=== PATIENT | male | born 1995 | race Caucasian/White ===

== ENCOUNTER 2023-03-21 18:01 | Observation (INO) ==
--- NOTE | 2023-03-21 18:10 | ED Triage Note ---
Date of Service March 21, 2023 History of Present Illness This patient was briefly evaluated while in triage. An abbreviated physical exam was performed. This patient is a 27-year-old Male who presents to the ED for evaluation of a feeling that he has fluid around his lungs. He had gastric bypass at [facility] on 02/01/23. He had a pleural effusion postoperatively and had a thoracentesis shortly following surgery. He states that over the past few days he has been having pain in the left side and feeling short of breath. Physical Exam VITALS: Vitals are noted on the nurse's note and reviewed by myself. GENERAL: This is a 27-year-old male, in no acute distress, well-developed well- nourished. SKIN: The skin was without rashes. HEART: Regular rate and rhythm without murmurs gallops or rubs. LUNGS: Dullness in the left lung base. NEURO: Patient was alert and oriented to person place and time. Initial orders for labs and / or imaging were placed and patient was placed in the waiting area until a bed is available. Please see further documentation for the full ED course.
--- NOTE | 2023-03-21 18:26 | XRay Report ---
XR chest 1V portable CLINICAL HISTORY: Sob, hx pleural effusion TECHNIQUE: Single frontal radiograph of the chest was obtained. Comparison: Comparison is made to CT abdomen pelvis 02/15/2022 FINDINGS: No lines and tubes are seen. Cardiomegaly is noted. The lungs are clear apart from left-sided atelect asis. Moderate left pleural effusion is seen. IMPRESSION: Moderate left pleural effusion with underlying atelectasis. ACT 112: Negative or not required by law. Electronically signed by: Angel Gaston M.D. 03/21/2023 6:24 PM
[2023-03-21 19:06] LABS: Basophils # (auto) 0.01 K/uL (0-0.2); Basophils % (auto) 0.1 %; Eosinophils # (auto) 0.05 K/uL (0-0.50); Eosinophils % (auto) 0.5 %; Hematocrit (blood only) 41.7 % (42.0-52.0); Hemoglobin 13.6 g/dl (14.0-18.0); Immature Granulocytes # (auto) 0.02 K/uL (0.01-0.20); Immature Granulocytes % (auto) 0.2 %; Mean Corpuscular Hemoglobin 27.2 pg (25.0-34.0); Mean Corpuscular Hgb Conc 32.6 g/dL (32.0-36.0); Mean Corpuscular Volume 83.4 fL (80.0-100.0); Mean Platelet Volume 11.5 fL (9.4-12.4); Monocytes # (auto) 0.65 K/uL (0.11-0.59); Monocytes % (auto) 6.1 %; Neutrophils # (auto) 8.47 K/uL (1.40-6.50); Neutrophils % (auto) 79.1 %; Platelet Count 307 K/uL (130-400); RDW Coefficient of Variation 14.5 % (11.5-14.5); RDW Standard Deviation 44.2 fL (36.4-46.3)
[2023-03-21 19:18] LABS: Alanine Aminotransferase 29 U/L (7-52); Albumin Globulin Ratio 1.2 (0.9-2); Albumin Level 3.8 gm/dl (3.4-5.0); Alkaline Phosphatase 77 U/L (34-104); Anion Gap 9 (3-11); Aspartate Aminotransferase 21 U/L (13-39); Bilirubin,Total 0.6 mg/dl (0.2-1.0); Blood Urea Nitrogen 9 mg/dl (6-23); Calcium 9.2 mg/dl (8.6-10.3); Carbon Dioxide 24 mmol/L (21-32); Chloride 106 mmol/L (98-107); Creatinine Clr Calc Pharmacy 262.8 ml/min; Est GFR (African American) > 150.0 ml/min; Est GFR (Non-African American) 139.7 ml/min; Globulin 3.3 gm/dl (2.5-4.0); Glucose 93 mg/dl (70-99(Fasting)); Potassium 4.5 mmol/L (3.5-5.1); Sodium 139 mmol/L (136-145); Total Protein 7.1 gm/dl (6.0-8.3)
[2023-03-21 19:24] LABS: Troponin I High Sensitivity 2.7 pg/ml (0-20)
--- NOTE | 2023-03-21 20:51 | Emergency Department Note ---
ED Provider Note History of Present Illness Chief Complaint: Illness Stated Complaint: ?PLUERAL EFFUSION,FEELS LIKE HE'S DROWNING, Time Seen by Provider: 03/21/23 20:50 This patient is a 27-year-old Male who presents to the ED for evaluation of a feeling that he has fluid around his lungs. He had gastric bypass at [facility] on 02/01/23 and had several complications following this. He was anemic after surgery and required a blood transfusion. He also had a bout of SVT in the hospital. He had a pleural effusion about 1 week postoperatively and had a thoracentesis. He saw pulmonology and they recommended using an incentive spir ometer which he has done without relief of symptoms. He states that over the past few days he has been having pain in the left side and feeling short of breath. Home Medications Medication Instructions Recorded Confirmed Type omeprazole 20 mg capsule,delayed 20 mg PO DAILYBB 08/04/20 02/15/22 History release trazodone 50 mg tablet 50 mg PO HS PRN Sleep 08/04/20 02/15/22 History apple cider vinegar 600 mg capsule 600 mg PO QAM 02/15/22 02/15/22 History citalopram 40 mg tablet 40 mg PO QAM 02/15/22 02/15/22 History multivitamin with minerals (Men's 1 tab PO QAM 02/15/22 02/15/22 History One Daily tablet) ondansetron 4 mg disintegrating 4 - 8 mg PO Q6H PRN nausea and 02/15/22 Rx tablet vomiting #20 tabs Allergies Allergy/AdvReac Type Severity Reaction Status Date / Time No Known Allergies Allergy Verified 02/15/22 08:56 Past Med/Surg History Medical History Hereditary optic neuropathy Ingrown toenail Kidney stone Tongue tied Family History Grandfather (Paternal) Prostate cancer Father Diabetes Kidney stone Hypertension Mother Diabetes Hypertension Kidney stone Grandmother Diabetes Heart disease Social History Smoking Status: Never smoker Hx Alcohol Use: Yes Preferred Language: Martiniquais marital status: Single Current Living Situation: Family current occupational status: unemployed Feels Safe at Home: Yes Diet: regular Physical Exam Vital Signs Vital Signs - 24 hr 03/21/23 18:04 03/21/23 20:55 03/21/23 20:55 Temperature 36.3 C L Temperature Source Temporal Artery Scan Pulse Rate 97 H 75 Pulse Rate [Apical] 83 Pulse Rate from SpO2 Sensor Pulse Rhythm Regular Pulse Rhythm [Apical] Regular Pulse Strength [Apical] Normal Respiratory Rate 20 22 22 Respiratory Effort / Characteristics Non-Labored Spontaneous Non-Labored Spontaneous Respiratory Depth Normal Normal Respiratory Pattern Regular Regular Blood Pressure 123/85 Blood Pressure [Left Arm] 118/81 Blood Pressure Mean 97 Blood Pressure Mean [Left Arm] 93 Blood Pressure Position [Left Arm] Lying Pulse Oximetry 98 97 97 Oxygen Delivery Method Room Air Room Air Room Air Sepsis Recent Fever Within 48 Hours No Sepsis New/Unexplained Change in Mental Status No Sepsis Action Taken by Nursing No Action Required 03/21/23 20:58 03/21/23 20:57 03/21/23 21:00 Temperature Temperature Source Pulse Rate 82 77 77 Pulse Rate [Apical] Pulse Rate from SpO2 Sensor 84 79 Pulse Rhythm Pulse Rhythm [Apical] Pulse Strength [Apical] Respiratory Rate 18 19 Respiratory Effort / Characteristics Respiratory Depth Respiratory Pattern Blood Pressure Blood Pressure [Left Arm] Blood Pressure Mean Blood Pressure Mean [Left Arm] Blood Pressure Position [Left Arm] Pulse Oximetry 97 97 Oxygen Delivery Method Room Air Room Air Sepsis Recent Fever Within 48 Hours Sepsis New/Unexplained Change in Mental Status Sepsis Action Taken by Nursing 03/21/23 21:00 03/21/23 21:30 03/21/23 22:00 Temperature Temperature Source Pulse Rate 78 82 Pulse Rate [Apical] Pulse Rate from SpO2 Sensor 76 Pulse Rhythm Pulse Rhythm [Apical] Pulse Strength [Apical] Respiratory Rate 22 22 Respiratory Effort / Characteristics Respiratory Depth Respiratory Pattern Blood Pressure 122/71 122/75 139/69 Blood Pressure [Left Arm] Blood Pressure Mean 88 90 92 Blood Pressure Mean [Left Arm] Blood Pressure Position [Left Arm] Pulse Oximetry 94 96 Oxygen Delivery Method Room Air Room Air Sepsis Recent Fever Within 48 Hours Sepsis New/Unexplained Change in Mental Status Sepsis Action Taken by Nursing 03/21/23 22:30 Temperature Temperature Source Pulse Rate 70 Pulse Rate [Apical] Pulse Rate from SpO2 Sensor 71 Pulse Rhythm Pulse Rhythm [Apical] Pulse Strength [Apical] Respiratory Rate 16 Respiratory Effort / Characteristics Respiratory Depth Respiratory Pattern Blood Pressure 150/89 H Blood Pressure [Left Arm] Blood Pressure Mean 109 Blood Pressure Mean [Left Arm] Blood Pressure Position [Left Arm] Pulse Oximetry 96 Oxygen Delivery Method Room Air Sepsis Recent Fever Within 48 Hours Sepsis New/Unexplained Change in Mental Status Sepsis Action Taken by Nursing VITALS: Vitals are noted on the nurse's note and reviewed by myself. GENERAL: This is a 27-year-old male, in no acute distress, well-developed well- nourished. SKIN: The skin was without rashes. MOUTH: Mucous membranes moist. NECK: Supple without nuchal rigidity. HEART: Regular rate and rhythm without murmurs gallops or rubs. LUNGS: Dullness in the left lung base. ABDOMEN: Positive bowel sounds x 4. Soft, nontender to palpation. NEURO: Patient was alert and oriented to person place and time. Course Administered Medications Discontinued Medications Furosemide (Furosemide 40 Mg/4 Ml Vial) 40 mg IV ONE ONE Stop: 03/21/23 22:37 Last Admin: 03/21/23 22:41 Dose: 40 mg Documented By: CARI Piperacillin Sod/Tazobactam Sod (Zosyn) 4.5 gm in 120 mls @ 240 mls/hr IV NOW ONE Stop: 03/22/23 00:58 Last Admin: 03/22/23 00:42 Dose: 240 mls/hr Documented By: CARI Ioversol (Optiray 320 100ml) 100 ml IV ONCE ONE Stop: 03/21/23 23:03 Last Admin: 03/21/23 23:02 Dose: 87 ml Documented By: KERWIN Medical Decision Making Differential Diagnosis Reactive airway disease, pneumonia, pneumothorax, COPD, CHF, infections, cardiac ischemia, pulmonary embolism, musculoskeletal, gastrointestinal, as well as other pathologies. Home Medications was personally reviewed by me Laboratory Data Attestation: I reviewed the patient's lab results. 03/21/23 18:39 03/21/23 18:39 Lab Results 03/21/23 03/21/23 Range/Units 18:39 18:39 WBC 10.70 (4.8-10.8) K/ul RBC 5.00 (4.70-6.10) M/uL Hgb 13.6 L (14.0-18.0) g/dl Hct 41.7 L (42.0-52.0) % MCV 83.4 (80.0-100.0) fL MCH 27.2 (25.0-34.0) pg MCHC 32.6 (32.0-36.0) g/dL RDW Std Deviation 44.2 (36.4-46.3) fL RDW Coeff of Halley 14.5 (11.5-14.5) % Plt Count 307 (130-400) K/uL MPV 11.5 (9.4-12.4) fL Immature Gran % (Auto) 0.2 % Neut % (Auto) 79.1 % Lymph % (Auto) 14.0 % [place] % (Auto) 6.1 % Eos % (Auto) 0.5 % Baso % (Auto) 0.1 % Neut # (Auto) 8.47 H (1.40-6.50) K/uL Lymph # (Auto) 1.50 (1.2-3.4) K/uL [place] # (Auto) 0.65 H (0.11-0.59) K/uL Eos # (Auto) 0.05 (0-0.50) K/uL Baso # (Auto) 0.01 (0-0.2) K/uL Immature Gran # (Auto) 0.02 (0.01-0.20) K/uL Sodium 139 (136-145) mmol/L Potassium 4.5 (3.5-5.1) mmol/L Chloride 106 (98-107) mmol/L Carbon Dioxide 24 (21-32) mmol/L Anion Gap 9 (3-11) BUN 9 (6-23) mg/dl Creatinine 0.60 (0.6-1.4) mg/dl Est Cr Clr Drug Dosing 262.8 ml/min Est GFR ( Amer) > 150.0 ml/min Est GFR (Non-Af Amer) 139.7 ml/min BUN/Creatinine Ratio 15.0 (10-20) Glucose 93 (70-99(Fasting)) mg/dl Calcium 9.2 (8.6-10.3) mg/dl Total Bilirubin 0.6 (0.2-1.0) mg/dl AST 21 (13-39) U/L ALT 29 (7-52) U/L Alkaline Phosphatase 77 (34-104) U/L Troponin I High Sens 2.7 (0-20) pg/ml Total Protein 7.1 (6.0-8.3) gm/dl Albumin 3.8 (3.4-5.0) gm/dl Globulin 3.3 (2.5-4.0) gm/dl Albumin/Globulin Ratio 1.2 (0.9-2) Imaging Data Attestation: I personally reviewed and interpreted this imaging study as follows: Radiologist's Impression: Chest X-Ray 03/21/23 18:10 XR chest 1V portable CLINICAL HISTORY: Sob, hx pleural effusion TECHNIQUE: Single frontal radiograph of the chest was obtained. Comparison: Comparison is made to CT abdomen pelvis 02/15/2022 FINDINGS: No lines and tubes are seen. Cardiomegaly is noted. The lungs are clear apart from left-sided atelectasis. Moderate left pleural effusion is seen. IMPRESSION: Moderate left pleural effusion with underlying atelectasis. ACT 112: Negative or not required by law. Electronically signed by: Angel Gaston M.D. 03/21/2023 6:24 PM Abdomen/Pelvis CT 03/21/23 22:36 Exam(s): CT ABDOMEN + PELVIS With Contrast IV Amt: 87 ml optiray 320 EXAM: CT Abdomen and Pelvis With Intravenous Contrast CLINICAL HISTORY: Reason for exam: recent gastric bypass, pleural effusion. TECHNIQUE: Axial computed tomography images of the abdomen and pelvis with intravenous contrast. Automated exposure control was utilized for the study. A dose lowering technique was utilized adhering to the principles of ALARA. CONTRAST: Patient received 87 ml optiray 320 of IV contrast COMPARISON: Comparison made to prior CT scan of the abdomen pelvis from February 15, 2022. FINDINGS: Lung bases: Left lower lobe consolidation with large pleural effusion. ABDOMEN: Liver: Hepatic steatosis. No mass. Gallbladder and bile ducts: Unremarkable. No calcified stones. No ductal dilation. Pancreas: Unremarkable. No mass. No ductal dilation. Spleen: Unremarkable. No splenomegaly. Adrenals: Unremarkable. No mass. Kidneys and ureters: Unremarkable. No solid mass. No hydronephrosis. Stomach and bowel: Status post gastric bypass with expected postsurgical changes. No obstruction. No mucosal thickening. PELVIS: Appendix: No findings to suggest acute appendicitis. Bladder: Unremarkable. No mass. Reproductive: Unremarkable as visualized. ABDOMEN and PELVIS: Intraperitoneal space: Unremarkable. No free air. No significant fluid collection. Bones/joints: No acute fracture. No dislocation. Soft tissues: There is a 7.5 mm fat-containing umbilical hernia. Vasculature: Unremarkable. No abdominal aortic aneurysm. Lymph nodes: Unremarkable. No enlarged lymph nodes. IMPRESSION: Left lower lobe consolidation with large pleural effusion. Hepatic steatosis. Status post gastric bypass with expected postsurgical changes. Electronically signed by: Breanne Silveira MD 03/21/23 23:[address] 03/21/23 22:36 Exam(s): CT CHEST With Contrast IV Amt: 87 ml optiray 320 EXAM: CT Chest With Intravenous Contrast CLINICAL HISTORY: Reason for exam: chest pain, pleural effusion. TECHNIQUE: Axial computed tomography images of the chest with intravenous contrast. Automated exposure control was utilized for the study. A dose lowering technique was utilized adhering to the principles of ALARA. CONTRAST: Patient received 87 ml optiray 320 of IV contrast COMPARISON: No relevant prior studies available. FINDINGS: Lungs: Left lower lobe and left upper lobe consolidation. Pleural space: Large left pleural effusion. Heart: Unremarkable. No cardiomegaly. No significant pericardial effusion. No significant coronary artery calcifications. Bones/joints: Unremarkable. No acute fracture. No dislocation. Soft tissues: Hepatic steatosis. Status post gastric bypass surgery. Vasculature: Unremarkable. No thoracic aortic aneurysm. Lymph nodes: Prominent mediastinal and hilar lymph nodes. IMPRESSION: Consolidation in the left upper and left lower lobe with large pleural effusion. Electronically signed by: Breanne Silveira MD 03/21/23 23:53 PM MDM Narrative Continuous property assessment monitor: Order was placed for continuous property assessment monitor. Patient was placed on the property assessment monitor. Patient was noted to be in normal sinus rhythm at an initial rate of 70 bpm. The patient is a 27-year-old male who presents today complaining of shortness of breath and pain in the left side of the chest. Labs are unremarkable. Chest x- ray shows a pleural effusion. CT of the chest and abdomen/pelvis were performed and redemonstrated a pleural effusion and pulmonary consolidation. Patient was covered on Zosyn and decision was made to admit him for further care and pulmonary consultation. Case was discussed with the [facility] hospitalist service who agreed to evaluate the patient for further care. Impression Pleural effusion, Pneumonia Discharge Plan Visit Data Chief Complaint: Illness Stated Complaint: ?PLUERAL EFFUSION,FEELS LIKE HE'S DROWNING, ED Provider: Aubree Stephen ED Midlevel Provider: Ro Parr Discharge Problem: Pleural effusion, Pneumonia Forms Stand Alone Forms: [facility] Prescriptions Prescriptions: No Action trazodone 50 mg tablet 50 mg PO HS PRN (Reason: Sleep) omeprazole 20 mg capsule,delayed release(DR/EC) 20 mg PO DAILYBB citalopram 40 mg tablet 40 mg PO QAM apple cider vinegar 600 mg Capsule 600 mg PO QAM Men's One Daily Tablet 1 tab PO QAM ondansetron 4 mg tablet,disintegrating 4 - 8 mg PO Q6H PRN (Reason: nausea and vomiting) Qty: 20 0RF Referrals Referrals: Tao Manzo MD [Primary Care Provider] - Pneumonia Qualifiers: Pneumonia type: due to unspecified organism Laterality: left Lung location: unspecified part of lung Qualified Code(s): J18.9 - Pneumonia, unspecified organism
[2023-03-21] MEDS ORDERED: FUROSEMIDE 40 MG/4 ML VIAL IV ONE (22:36)
[2023-03-21] MEDS ORDERED: OPTIRAY 320 100ml IV ONE (23:02)
--- NOTE | 2023-03-21 23:51 | CT Scan Report ---
Exam(s): CT ABDOMEN + PELVIS With Contrast IV Amt: 87 ml optiray 320 EXAM: CT Abdomen and Pelvis With Intravenous Contrast CLINICAL HISTORY: Reason for exam: recent gastric bypass, pleural effusion. TECHNIQUE: Axial computed tomography images of the abdomen and pelvis with intravenous contrast. Automated exposure control was utilized for the study. A dose lowering technique was utilized adhering to the principles of ALARA. CONTRAST: Patient received 87 ml optiray 320 of IV contrast COMPARISON: Comparison made to prior CT scan of the abdomen pelvis from February 15, 2022. FINDINGS: Lung bases: Left lower lobe consolidation with large pleural effusion. ABDOMEN: Liver: Hepatic steatosis. No mass. Gallbladder and bile ducts: Unremarkable. No calcified stones. No ductal dilation. Pancreas: Unremarkable. No mass. No ductal dilation. Spleen: Unremarkable. No splenomegaly. Adrenals: Unremarkable. No mass. Kidneys and ureters: Unremarkable. No solid mass. No hydronephrosis. Stomach and bowel: Status post gastric bypass with expected postsurgical changes. No obstruction. No mucosal thickening. PELVIS: Appendix: No findings to suggest acute appendicitis. Bladder: Unremarkable. No mass. Reproductive: Unremarkable as visualized. ABDOMEN and PELVIS: Intraperitoneal space: Unremarkable. No free air. No significant fluid collection. Bones/joints: No acute fracture. No dislocation. Soft tissues: There is a 7.5 mm fat-containing umbilical hernia. Vasculature: Unremarkable. No abdominal aortic aneurysm. Lymph nodes: Unremarkable. No enlarged lymph nodes. IMPRESSION: Left lower lobe consolidation with large pleural effusion. Hepatic steatosis. Status post gastric bypass with expected postsurgical changes. Electronically signed by: Breanne Silveira MD 03/21/23 23:50 PM
--- NOTE | 2023-03-21 23:53 | CT Scan Report ---
Exam(s): CT CHEST With Contrast IV Amt: 87 ml optiray 320 EXAM: CT Chest With Intravenous Contrast CLINICAL HISTORY: Reason for exam: chest pain, pleural effusion. TECHNIQUE: Axial computed tomography images of the chest with intravenous contrast. Automated exposure control was utilized for the study. A dose lowering technique was utilized adhering to the principles of ALARA. CONTRAST: Patient received 87 ml optiray 320 of IV contrast COMPARISON: No relevant prior studies available. FINDINGS: Lungs: Left lower lobe and left upper lobe consolidation. Pleural space: Large left pleural effusion. Heart: Unremarkable. No cardiomegaly. No significant pericardial effusion. No significant coronary artery calcifications. Bones/joints: Unremarkable. No acute fracture. No dislocation. Soft tissues: Hepatic steatosis. Status post gastric bypass surgery. Vasculature: Unremarkable. No thoracic aortic aneurysm. Lymph nodes: Prominent mediastinal and hilar lymph nodes. IMPRESSION: Consolidation in the left upper and left lower lobe with large pleural effusion. Electronically signed by: Breanne Silveira MD 03/21/23 23:53 PM
[2023-03-22] MEDS ORDERED: PIPERACILLIN/TAZOBACTAM 4.5 GM/120 ML BAG IV ONE (00:29)
--- NOTE | 2023-03-22 03:46 | History & Physical Report ---
Date of Service March 22, 2023 Assessment & Plan (1) Pleural effusion: (2) Pneumonia: (3) Gastric bypass status for obesity: (4) History of GI bleed: Plan Pneumonia involving left upper and left lower lobes/parapneumonic effusion- MRSA swab Zosyn 4.5 g IV every 8 hours Nasal cannula oxygen, titrate to pulse ox 92-94% Consult pulmonology GERD/GI bleed post gastric bypass- Change omeprazole 20 mg p.o. daily to pantoprazole 40 mg IV daily for now Full liquid diet as tolerated Consult nutrition Postop anemia post gastric bypass- Patient reportedly required 4 units PRBCs due to bleeding the day after surgery. Hemoglobin 13.6 on admission, will follow serially SVT- Patient reportedly had episode of SVT after acute bleeding We will place on monitored bed Normal electrolytes at this time Avoid HFA's and nebulizers for now History of Present Illness Chief Complaint: The patient presents to the emergency department with complaint of a recurrence of fluid building up on his lungs as initially occurred after gastric bypass at [facility] on 02/01/2023 Primary Care Provider: Tao Manzo MD The patient is a 27-year-old male with a past medical history including anxiety, depression, GERD, insomnia and morbid obesity. He is status post gastric bypass at [facility] on 02/01/2023. He reports today after surgery he had a bleed into his abdomen, requiring 4 units PRBCs. He also had fluid in his right lung where about 600 cc of fluid was removed with thoracentesis. He reportedly also had a pneumonia treated with vancomycin IV. The patient reports that over the past couple days he has felt like fluids and feeling back up in his lungs again. He has had persistent nausea and vomiting, and unable to hold any foods or liquids down. He reports that even attempting to take chewable multivitamins results and severe nausea and vomiting. Allergies Allergy/AdvReac Type Severity Reaction Status Date / Time No Known Allergies Allergy Verified 02/15/22 08:56 Home Medications Medication Instructions Recorded Confirmed Type omeprazole 20 mg capsule,delayed 20 mg PO DAILYBB 08/04/20 02/15/22 History release trazodone 50 mg tablet 50 mg PO HS PRN Sleep 08/04/20 02/15/22 History apple cider vinegar 600 mg capsule 600 mg PO QAM 02/15/22 02/15/22 History citalopram 40 mg tablet 40 mg PO QAM 02/15/22 02/15/22 History multivitamin with minerals (Men's 1 tab PO QAM 02/15/22 02/15/22 History One Daily tablet) ondansetron 4 mg disintegrating 4 - 8 mg PO Q6H PRN nausea and 02/15/22 Rx tablet vomiting #20 tabs Past Med/Surg History Medical History (Updated 03/22/23 @ 03:52 by Danielito Hernández MD) Hereditary optic neuropathy History of GI bleed Ingrown toenail Kidney stone Tongue tied Surgical History (Updated 03/22/23 @ 03:52 by Danielito Hernández MD) Gastric bypass status for obesity Family History Grandfather (Paternal) Prostate cancer Father Diabetes Kidney stone Hypertension Mother Diabetes Hypertension Kidney stone Grandmother Diabetes Heart disease Social History Smoking Status: Never smoker Hx Alcohol Use: Yes Preferred Language: Estonian marital status: Single Current Living Situation: Family current occupational status: unemployed Feels Safe at Home: Yes Diet: regular Review of Systems Review of Systems: The patient denies chest pain, palpitations, lower extremity swelling, fevers, chills, sweats, blood in urine or stool, dysuria, urinary frequency or urgency, lightheadedness, dizziness, headache, memory loss, loss of consciousness, rash, abnormal bruising or bleeding, imbalance, focal or generalized weakness, numbness or tingling in arms or legs, generalized arthralgias or myalgias, back or neck pain, or night sweats. The review of systems is otherwise negative other than for that already noted above, and at least 10 systems have been reviewed. Physical Exam Physical Exam: The patient is awake, alert and oriented 3, well developed and well nourished, normocephalic and atraumatic, lying in bed and in no acute distress. HEENT--PERRL, EOMI, mucous membranes and oropharynx dry. Neck--supple. No JVD. No bruits. Thyroid normal, trachea midline, no adenopathy. Heart--normal S1 and S2. No murmurs, rubs or gallops. Lungs--coarse breath sounds on left. No respiratory distress, no accessory muscle use. Abdomen--normal bowel sounds and soft. Nontender. Nondistended Extremities--no cyanosis or clubbing. No edema. Dermatologic--normal skin turgor, normal color, no abnormal lymph nodes, no rash. Neurologic--cranial nerves II through XII grossly intact. Rheumatologic--normal range of motion. Psychiatric--normal affect. Results & Data Results & Data Vital Signs (Past 12 Hours) Vital Signs Temp Pulse Pulse Resp BP BP Pulse Ox 03/22/23 02:35 92 H 24 106/65 94 03/22/23 00:53 96 H 03/22/23 01:17 92 H 14 115/69 92 03/22/23 01:00 97 H 18 94 03/22/23 00:30 102 H 18 91 03/22/23 00:01 105 H 19 94 03/21/23 22:30 70 16 150/89 H 96 03/21/23 22:00 82 22 139/69 96 03/21/23 21:30 78 22 122/75 94 03/21/23 21:00 122/71 03/21/23 21:00 77 19 97 03/21/23 20:57 77 18 97 03/21/23 20:58 82 03/21/23 20:55 83 22 118/81 97 03/21/23 20:55 75 22 97 03/21/23 18:04 36.3 C L 97 H 20 123/85 98 O2 Del Method 03/22/23 02:35 Room Air 03/22/23 00:53 03/22/23 01:17 Room Air 03/22/23 01:00 03/22/23 00:30 03/22/23 00:01 03/21/23 22:30 Room Air 03/21/23 22:00 Room Air 03/21/23 21:30 Room Air 03/21/23 21:00 03/21/23 21:00 Room Air 03/21/23 20:57 Room Air 03/21/23 20:58 03/21/23 20:55 Room Air 03/21/23 20:55 Room Air 03/21/23 18:04 Room Air Laboratory Results Laboratory Results WBC 10.70 K/ul (4.8-10.8) 03/21/23 18:39 RBC 5.00 M/uL (4.70-6.10) 03/21/23 18:39 Hgb 13.6 g/dl (14.0-18.0) L 03/21/23 18:39 Hct 41.7 % (42.0-52.0) L 03/21/23 18:39 MCV 83.4 fL (80.0-100.0) 03/21/23 18: MCH 27.2 pg (25.0-34.0) 03/21/23 18: MCHC 32.6 g/dL (32.0-36.0) 03/21/23 18: RDW Std Deviation 44.2 fL (36.4-46.3) 03/21/23 18: RDW Coeff of Halley 14.5 % (11.5-14.5) 03/21/23 18: Plt Count 307 K/uL (130-400) 03/21/23 18: MPV 11.5 fL (9.4-12.4) 03/21/23 18:39 Immature Gran % (Auto) 0.2 % 03/21/23 18:39 Neut % (Auto) 79.1 % 03/21/23 18:39 Lymph % (Auto) 14.0 % 03/21/23 18:39 [place] % (Auto) 6.1 % 03/21/23 18:39 Eos % (Auto) 0.5 % 03/21/23 18:39 Baso % (Auto) 0.1 % 03/21/23 18:39 Neut # (Auto) 8.47 K/uL (1.40-6.50) H 03/21/23 18:39 Lymph # (Auto) 1.50 K/uL (1.2-3.4) 03/21/23 18:39 [place] # (Auto) 0.65 K/uL (0.11-0.59) H 03/21/23 18:39 Eos # (Auto) 0.05 K/uL (0-0.50) 03/21/23 18:39 Baso # (Auto) 0.01 K/uL (0-0.2) 03/21/23 18: Immature Gran # (Auto) 0.02 K/uL (0.01-0.20) 03/21/23 18:39 Sodium 139 mmol/L (136-145) 03/21/23 18:39 Potassium 4.5 mmol/L (3.5-5.1) 03/21/23 18:39 Chloride 106 mmol/L (98-107) 03/21/23 18:39 Carbon Dioxide 24 mmol/L (21-32) 03/21/23 18:39 Anion Gap 9 (3-11) 03/21/23 18:39 BUN 9 mg/dl (6-23) 03/21/23 18:39 Creatinine 0.60 mg/dl (0.6-1.4) 03/21/23 18:39 Est Cr Clr Drug Dosing 262.8 ml/min 03/21/23 18:39 Est GFR ( Amer) > 150.0 ml/min 03/21/23 18:39 Est GFR (Non-Af Amer) 139.7 ml/min 03/21/23 18:39 BUN/Creatinine Ratio 15.0 (10-20) 03/21/23 18:39 Glucose 93 mg/dl (70-99(Fasting)) 03/21/23 18:39 Calcium 9.2 mg/dl (8.6-10.3) 03/21/23 18:39 Total Bilirubin 0.6 mg/dl (0.2-1.0) 03/21/23 18:39 AST 21 U/L (13-39) 03/21/23 18:39 ALT 29 U/L (7-52) 03/21/23 18:39 Alkaline Phosphatase 77 U/L (34-104) 03/21/23 18:39 Troponin I High Sens 2.7 pg/ml (0-20) 03/21/23 18:39 B-Natriuretic Peptide 28 pg/ml (0-100) 03/22/23 00:32 Total Protein 7.1 gm/dl (6.0-8.3) 03/21/23 18:39 Albumin 3.8 gm/dl (3.4-5.0) 03/21/23 18:39 Globulin 3.3 gm/dl (2.5-4.0) 03/21/23 18:39 Albumin/Globulin Ratio 1.2 (0.9-2) 03/21/23 18:39 SARS-CoV-2, RNA, NAAT NEGATIVE (NEGATIVE) 03/22/23 00:45 Impressions Chest X-Ray 03/21/23 18:10 XR chest 1V portable CLINICAL HISTORY: Sob, hx pleural effusion TECHNIQUE: Single frontal radiograph of the chest was obtained. Comparison: Comparison is made to CT abdomen pelvis 02/15/2022 FINDINGS: No lines and tubes are seen. Cardiomegaly is noted. The lungs are clear apart from left-sided atelectasis. Moderate left pleural effusion is seen. IMPRESSION: Moderate left pleural effusion with underlying atelectasis. ACT 112: Negative or not required by law. Electronically signed by: Angel Gaston M.D. 03/21/2023 6:24 PM Abdomen/Pelvis CT 03/21/23 22:36 Exam(s): CT ABDOMEN + PELVIS With Contrast IV Amt: 87 ml optiray 320 EXAM: CT Abdomen and Pelvis With Intravenous Contrast CLINICAL HISTORY: Reason for exam: recent gastric bypass, pleural effusion. TECHNIQUE: Axial computed tomography images of the abdomen and pelvis with intravenous contrast. Automated exposure control was utilized for the study. A dose lowering technique was utilized adhering to the principles of ALARA. CONTRAST: Patient received 87 ml optiray 320 of IV contrast COMPARISON: Comparison made to prior CT scan of the abdomen pelvis from February 15, 2022. FINDINGS: Lung bases: Left lower lobe consolidation with large pleural effusion. ABDOMEN: Liver: Hepatic steatosis. No mass. Gallbladder and bile ducts: Unremarkable. No calcified stones. No ductal dilation. Pancreas: Unremarkable. No mass. No ductal dilation. Spleen: Unremarkable. No splenomegaly. Adrenals: Unremarkable. No mass. Kidneys and ureters: Unremarkable. No solid mass. No hydronephrosis. Stomach and bowel: Status post gastric bypass with expected postsurgical changes. No obstruction. No mucosal thickening. PELVIS: Appendix: No findings to suggest acute appendicitis. Bladder: Unremarkable. No mass. Reproductive: Unremarkable as visualized. ABDOMEN and PELVIS: Intraperitoneal space: Unremarkable. No free air. No significant fluid collection. Bones/joints: No acute fracture. No dislocation. Soft tissues: There is a 7.5 mm fat-containing umbilical hernia. Vasculature: Unremarkable. No abdominal aortic aneurysm. Lymph nodes: Unremarkable. No enlarged lymph nodes. IMPRESSION: Left lower lobe consolidation with large pleural effusion. Hepatic steatosis. Status post gastric bypass with expected postsurgical changes. Electronically signed by: Breanne Silveira MD 03/21/23 23:[address] 03/21/23 22:36 Exam(s): CT CHEST With Contrast IV Amt: 87 ml optiray 320 EXAM: CT Chest With Intravenous Contrast CLINICAL HISTORY: Reason for exam: chest pain, pleural effusion. TECHNIQUE: Axial computed tomography images of the chest with intravenous contrast. Automated exposure control was utilized for the study. A dose lowering technique was utilized adhering to the principles of ALARA. CONTRAST: Patient received 87 ml optiray 320 of IV contrast COMPARISON: No relevant prior studies available. FINDINGS: Lungs: Left lower lobe and left upper lobe consolidation. Pleural space: Large left pleural effusion. Heart: Unremarkable. No cardiomegaly. No significant pericardial effusion. No significant coronary artery calcifications. Bones/joints: Unremarkable. No acute fracture. No dislocation. Soft tissues: Hepatic steatosis. Status post gastric bypass surgery. Vasculature: Unremarkable. No thoracic aortic aneurysm. Lymph nodes: Prominent mediastinal and hilar lymph nodes. IMPRESSION: Consolidation in the left upper and left lower lobe with large pleural effusion. Electronically signed by: Breanne Silveira MD 03/21/23 23:53 PM Code Status & VTE Plan Code Status Full code VTE Prophylaxis Plan VTE Prophylaxis will be ordered: Yes PG Care Time/CCT Total # of Minutes Spent Total Time Spent with Patient: Total time spent is greater than 50% in coordination of care (as documented) at patient's floor/unit and/or counseling patient: Coding Level of Care Code 88198 INT INP/OBS CARE 3/75MIN Diagnoses Pleural effusion J90 Pneumonia J18.9 Laterality: left Lung location: unspecified part of lung Pneumonia type: due to unspecified organism Gastric bypass status for obesity Z98.84 History of GI bleed Z87.19 (2) Pneumonia Laterality: left Lung location: unspecified part of lung Pneumonia type: due to unspecified organism Qualified Code(s): J18.9 - Pneumonia, unspecified organism
[2023-03-22] MEDS ORDERED: ONDANSETRON INJ 2 MG/ML 2 ML VIAL IV PRN (04:11)
[2023-03-22 04:58] LABS: Basophils # (auto) 0.02 K/uL (0-0.2); Basophils % (auto) 0.2 %; Eosinophils # (auto) 0.05 K/uL (0-0.50); Eosinophils % (auto) 0.5 %; Hemoglobin 13.3 g/dl (14.0-18.0); Immature Granulocytes # (auto) 0.03 K/uL (0.01-0.20); Immature Granulocytes % (auto) 0.3 %; Lymphocytes # (auto) 2.02 K/uL (1.2-3.4); Lymphocytes % (auto) 20.8 %; Mean Corpuscular Hgb Conc 32.4 g/dL (32.0-36.0); Mean Corpuscular Volume 83.3 fL (80.0-100.0); Mean Platelet Volume 11.4 fL (9.4-12.4); Monocytes # (auto) 0.71 K/uL (0.11-0.59); Monocytes % (auto) 7.3 %; Neutrophils # (auto) 6.87 K/uL (1.40-6.50); Neutrophils % (auto) 70.9 %; Platelet Count 296 K/uL (130-400); RDW Coefficient of Variation 14.4 % (11.5-14.5); RDW Standard Deviation 43.7 fL (36.4-46.3); Red Blood Count 4.92 M/uL (4.70-6.10)
[2023-03-22 05:14] LABS: Albumin Globulin Ratio 1.1 (0.9-2); Albumin Level 3.7 gm/dl (3.4-5.0); BUN Creatinine Ratio 11.7 (10-20); Bilirubin,Total 0.8 mg/dl (0.2-1.0); Calcium 9.6 mg/dl (8.6-10.3); Creatinine Clr Calc Pharmacy 204.8 ml/min; Est GFR (African American) 146.2 ml/min; Est GFR (Non-African American) 126.1 ml/min; Globulin 3.3 gm/dl (2.5-4.0)
[2023-03-22] MEDS: PIPERACILLIN/TAZOBACTAM 4.5 GM in DEXTROSE 5% 100 ML IV SCH ×3 (05:29→23:22)
--- NOTE | 2023-03-22 09:32 | Pulmonary Consultation ---
Date of Consultation March 22, 2023 Assessment & Plan (1) Pleural effusion: Plan IMPRESSION: 27-year-old male who is 1.5 months postoperative from bariatric surgery who presents with recurrent LEFT-sided pleural effusion with associated cough and pleuritic chest discomfort requiring thoracentesis and pleural fluid characterization. RECOMMENDATIONS: 1. Pleural effusion - Of uncertain etiology at this point. Certainly is likely related to the patient's recent abdominal surgery. As this is reaccumulated and is resulting in discomfort for the patient, would proceed with thoracentesis with fluid characterization. Patient is agreeable. Will plan on thoracentesis later this afternoon. 2. Questionable pneumonia - Unable to clearly identify area of consolidation secondary to significant pleural fluid with possible underlying compressive atelectasis versus consolidation. Would continue with antibiotic coverage in the interim. Especially in a patient who is complaining of significant nausea and vomiting. 3. Consider swallow study evaluation as the patient reports that he has worsening cough when drinking fluids. Uncertain of the specifics of this in a postoperative gastric bypass patient, however would refer to [facility] for swallow evaluation. Thank you for allowing us to participate in the care of this patient. History of Present Illness Reason for Consultation: pleural effusion/ pnuemonia/ thoracocenthesis Requesting Physician: Dr. Calix Attending Physician: Rickie Calix History of Present Illness Patient is a 27-year-old male with significant past medical history of morbid obesity status post bariatric surgery performed in early January at [facility], anxiety disorder, insomnia, penile adhesions, and GERD. The patient was admitted for 14 days postoperatively after bleeding complications and development of a LEFT-sided pleural effusion. Patient reports undergoing thoracentesis with drainage of approximately 600 cc of pleural fluid. He states that this was "tested" and was felt to be unremarkable. Patient was instructed to utilize his incentive spirometer and take pain medications for any pleuritic type pain. He reports that over the last week he has had increasing LEFT-sided pleuritic pain and a cough productive of clear sputum. He admits a new onset of postnasal drip as well. Patient denies hemoptysis. He reports no fevers or chills. He reports no significant dyspnea on exertion. He denies any falls or recent trauma to the affected area. He denies any prior history of lung disease. He is not on inhalers regularly. He has been having substantial amounts of vomiting postoperatively which has been managed by his surgical team. Allergies Allergy/AdvReac Type Severity Reaction Status Date / Time No Known Allergies Allergy Verified 02/15/22 08:56 Home Medications Medication Instructions Recorded Confirmed Type omeprazole 20 mg capsule,delayed 20 mg PO DAILYBB 08/04/20 02/15/22 History release trazodone 50 mg tablet 50 mg PO HS PRN Sleep 08/04/20 02/15/22 History apple cider vinegar 600 mg capsule 600 mg PO QAM 02/15/22 02/15/22 History citalopram 40 mg tablet 40 mg PO QAM 02/15/22 02/15/22 History multivitamin with minerals (Men's 1 tab PO QAM 02/15/22 02/15/22 History One Daily tablet) ondansetron 4 mg disintegrating 4 - 8 mg PO Q6H PRN nausea and 02/15/22 Rx tablet vomiting #20 tabs Patient History Medical History (Updated 03/22/23 @ 03:52 by Danielito Hernández MD) Hereditary optic neuropathy History of GI bleed Ingrown toenail Kidney stone Tongue tied Surgical History (Updated 03/22/23 @ 03:52 by Danielito Hernández MD) Gastric bypass status for obesity Family History Grandfather (Paternal) Prostate cancer Father Diabetes Kidney stone Hypertension Mother Diabetes Hypertension Kidney stone Grandmother Diabetes Heart disease Social History Smoking Status: Never smoker Hx Alcohol Use: No Hx Substance Use: No Preferred Language: Turkmen Beliefs That Will Affect Care: None marital status: Single Current Living Situation: Spouse current occupational status: unemployed Feels Safe at Home: Yes Diet: regular Review of Systems Review of Systems: A complete 10 point review of systems was reviewed with the patient with pertinent positives and negatives as per history of present illness. All else were negative. Physical Exam Physical Exam: VITAL SIGNS - Vital signs and nursing notes were reviewed. GENERAL - 27-year-old male appearing his stated age who is in no acute distress. Communicates well with provider and answers questions appropriately. SKIN - Without rashes or lesions. Abdominal incision sites clean, dry, and intact. NOSE - Midline and without cyanosis. No epistaxis or purulent drainage noted. MOUTH/OROPHARYNX - Without perioral cyanosis. NECK - Neck with FROM. LUNGS - Chest wall evaluation demonstrates normal chest wall A:P diameter. Auscultation reveals diminished breath sounds at the LEFT lung base. No wheezes, rales, or rhonchi appreciated. CARDIAC - RRR with S1/S2. No murmur, rubs, or gallops appreciated. ABDOMEN - Abdominal inspection demonstrates an obese abdomen. Postoperative incision sites clean, dry, and intact. BS normoactive all four quadrants. No tenderness, palpable masses, or ascites noted. EXTREMITIES - No pretibial edema present. +3/5 radial palpated throughout. PSYCH - A&Ox3 and cooperates fully with examiner. Pt is very pleasant and interacts well with examiner. Results & Data Results & Data Vital Signs (Past 12 Hours) Vital Signs Temp Pulse Pulse Pulse Resp BP BP 03/22/23 07:45 03/22/23 07:46 36.6 C 71 20 107/70 03/22/23 07:00 73 03/22/23 06:10 36.6 C 88 18 123/80 03/22/23 05:33 36.9 C 75 18 130/76 03/22/23 04:00 79 14 03/22/23 02:35 92 H 24 106/65 03/22/23 00:53 96 H 03/22/23 01:17 92 H 14 115/69 03/22/23 01:00 97 H 18 03/22/23 00:30 102 H 18 03/22/23 00:01 105 H 19 03/21/23 22:30 70 16 150/89 H 03/21/23 22:00 82 22 139/69 03/21/23 21:30 78 22 122/75 Pulse Ox O2 Del Method 03/22/23 07:45 Room Air 03/22/23 07:46 94 Room Air 03/22/23 07:00 03/22/23 06:10 95 Room Air 03/22/23 05:33 96 Room Air 03/22/23 04:00 94 Room Air 03/22/23 02:35 94 Room Air 03/22/23 00:53 03/22/23 01:17 92 Room Air 03/22/23 01:00 94 03/22/23 00:30 91 03/22/23 00:01 94 03/21/23 22:30 96 Room Air 03/21/23 22:00 96 Room Air 03/21/23 21:30 94 Room Air PG Care Time/CCT Total # of Minutes Spent Total Time Spent with Patient: Total time spent is greater than 50% in coordination of care (as documented) at patient's floor/unit and/or counseling patient: Coding Level of Care Code 12107 IN/OBS CONSULT LVL 4,60M Diagnoses Pleural effusion J90
[2023-03-22] MEDS: PANTOprazole 40 MG in SYRINGE 0 ML IV SCH (10:27)
--- NOTE | 2023-03-22 15:13 | Procedure Note ---
Procedure Note Date of Service March 22, 2023 Note Procedure: Diagnostic therapeutic ultrasound-guided catheter thoracentesis, left Setter Automatic Spinning Lathe: Dr. Jaswinder Herrera Indication: Pleural effusion Consent: Signed by patient and verified with timeout prior to procedure Anesthesia: 8 mL's 1% lidocaine without epinephrine local. Procedure: Consent was verified and timeout performed. Appropriate imaging studies were reviewed prior to the procedure. Patient was placed in a seated position and limited thoracic ultrasound was performed of the left chest. See separate imaging. Site appropriate for thoracentesis was selected. The skin was prepped and draped in normal sterile fashion. Lidocaine was used for local analgesia. Fluid was aspirated via the finder needle. A small skin camilo was made with the scalpel and the catheter over the needle apparatus was advanced over the rib i nto the pleural space. Using the syringe one-way valve system, a total of 1700 mL's of nichol cloudy fluid was removed. Procedure was terminated due to inability to withdraw additional fluid as well as chest discomfort. The catheter was removed and observed to be intact. A sterile dressing was applied. Post procedure chest x-ray was ordered. Fluid was sent for cell count differential, Gram stain and culture, AFB culture, LDH, total protein, glucose, pH, and cytology. The patient tolerated the procedure well without obvious complication Coding CPT Codes Pulmonary/Thoracic - Pulmonary and Thoracic: 45424 Thoracentesis w imaging ([id number]) [facility] [place] Procedure Codes (Charges) Pulmonary/Thoracic Procedure 1: Pulmonary and Thoracic: 05761 Thoracentesis w imaging
[2023-03-22 15:42] LABS: Appearance Pleural Fluid Cloudy; Color Pleural Fluid Yellow; RBC Pleural Fluid Auto 8000 /uL; Source Pleural Fluid Left Lung; WBC Pleural Fluid Auto 3055 /uL
[2023-03-22 15:43] LABS: Total Protein Pleural Fluid 4.9 gm/dl
--- NOTE | 2023-03-22 15:48 | XRay Report ---
XR chest 1V portable HISTORY: Status post left-sided thoracentesis. Assess for a pneumothorax. COMPARISON: Chest CT 03/21/2023. FINDINGS: There is a small left pleural effusion remaining status post thoracentesis. Left basilar de nsities have also improved. No pneumothorax. The right lung is clear. The cardiac silhouette remains mildly enlarged. There are low lung volumes. IMPRESSION: Decrease in size in the small left pleural effusion and left basilar density status post thoracentesi s. No pneumothorax. ACT 112: Negative or not required by law. Electronically signed by: Jessee Aburto M.D. 03/22/2023 3:47 PM
[2023-03-22 15:56] LABS: Lymphocytes, Fluid 36 %; Mono,Macrophage,Mesothelial 42 %; Neutrophils, Fluid 22 %
[2023-03-22] MEDS: ACETAMINOPHEN 1000 MG/100 ML IV IV PRN (21:21)
[2023-03-23] MEDS: PIPERACILLIN/TAZOBACTAM 4.5 GM in DEXTROSE 5% 100 ML IV SCH (05:48)
[2023-03-23 07:00] LABS: Basophils # (auto) 0.01 K/uL (0-0.2); Basophils % (auto) 0.1 %; Hematocrit (blood only) 41.6 % (42.0-52.0); Hemoglobin 13.4 g/dl (14.0-18.0); Immature Granulocytes # (auto) 0.04 K/uL (0.01-0.20); Immature Granulocytes % (auto) 0.4 %; Lymphocytes # (auto) 1.59 K/uL (1.2-3.4); Lymphocytes % (auto) 15.6 %; Mean Corpuscular Hemoglobin 27.2 pg (25.0-34.0); Mean Corpuscular Hgb Conc 32.2 g/dL (32.0-36.0); Mean Corpuscular Volume 84.6 fL (80.0-100.0); Mean Platelet Volume 11.6 fL (9.4-12.4); Monocytes # (auto) 0.69 K/uL (0.11-0.59); Monocytes % (auto) 6.8 %; Neutrophils # (auto) 7.73 K/uL (1.40-6.50); Neutrophils % (auto) 76.1 %; Platelet Count 289 K/uL (130-400); RDW Coefficient of Variation 14.1 % (11.5-14.5); RDW Standard Deviation 43.5 fL (36.4-46.3); Red Blood Count 4.92 M/uL (4.70-6.10); White Blood Count 10.16 K/ul (4.8-10.8)
[2023-03-23 07:20] LABS: Alanine Aminotransferase 23 U/L (7-52); Albumin Globulin Ratio 1.1 (0.9-2); Albumin Level 3.6 gm/dl (3.4-5.0); Alkaline Phosphatase 67 U/L (34-104); Anion Gap 8 (3-11); Aspartate Aminotransferase 15 U/L (13-39); Bilirubin,Total 0.7 mg/dl (0.2-1.0); Blood Urea Nitrogen 9 mg/dl (6-23); Calcium 9.5 mg/dl (8.6-10.3); Carbon Dioxide 29 mmol/L (21-32); Chloride 104 mmol/L (98-107); Creatinine Clr Calc Pharmacy 226.8 ml/min; Est GFR (African American) > 150.0 ml/min; Est GFR (Non-African American) 131.9 ml/min; Globulin 3.2 gm/dl (2.5-4.0); Glucose 84 mg/dl (70-99(Fasting)); Magnesium 1.9 mg/dl (1.7-2.4); Potassium 3.9 mmol/L (3.5-5.1); Sodium 141 mmol/L (136-145); Total Protein 6.8 gm/dl (6.0-8.3)
--- NOTE | 2023-03-23 08:07 | Pulmonology Progress Note ---
Date of Service March 23, 2023 Assessment & Plan (1) Pleural effusion: Plan Impression: 27-year-old male status post gastric bypass in [place] presenting now with recurrent pleural effusion. The effusion is exudative and may represent sympathetic effusion related to the patient's recent abdominal procedure. It does not appear consistent with a parapneumonic effusion or empyema. Recommendations: 1. Pleural effusion: Appears resolved or significantly decreased on the current x-ray. Await pleural fluid cytology but suspect this will be negative. From a pulmonary perspective the patient may be dismissed from the hospital. Recommend that he follow-up with his primary care provider with a repeat chest x-ray in the next 2 to 3 weeks. We will contact him if there are any other actionable data coming from his pleural fluid studies. It is possible the pleural fluid may reaccumulate as the patient's intra-abdominal issues resolve. 2. I do not think this represents pneumonia or a complicated parapneumonic effusion and from my perspective antibiotics can be discontinued. 3. Management the patient's other medical issues defer to the primary admitting service. Pulmonary will sign off at this point time. Feel free to contact us with additional questions or concerns Discussed with the patient at bedside Admission and Anticipated Discharge Date Admission Date: March 22, 2023 Subjective Patient seen and examined. EMR reviewed. The patient states his breathing is better but he is complaining of some chest tightness and discomfort which is vaguely associated with his entire left hemithorax from the apex down to the lung base. He is not coughing or wheezing. He has not had any fevers chills or night sweats overnight. His appetite is good. He has not had any hemoptysis. Review of Systems Review of Systems: All systems reviewed & are unremarkable except as noted in Subjective Physical Exam Constitutional: WD/WN, vitals as above Neck: trachea midline, no thyromegaly Respiratory: normal respiratory effort, lungs clear to auscultation Cardiovascular: RRR, no murmur, no edema Gastrointestinal (Abdomen): normal bowel sounds, soft, nontender, no hepatosplenomegaly Musculoskeletal: Extremities: extremities normal to inspection Skin: no rashes, warm and dry Neurologic: Nonfocal exam Lymphatic: no cervical lymphadenopathy Results & Data Results & Data Vital Signs (Past 12 Hours) Vital Signs Temp Pulse Pulse Resp BP Pulse Ox O2 Del Method 03/23/23 07:58 36.7 C 86 19 116/72 93 Room Air 03/23/23 07:00 69 03/23/23 04:07 36.6 C 89 18 118/71 93 Room Air 03/22/23 21:00 Room Air 03/22/23 21:58 66 03/22/23 22:00 36.9 C 70 18 122/76 95 Room Air Laboratory Results 03/23/23 06:02 03/23/23 06:02 Pleural fluid analysis: Cell count differential: Neutrophils 22%, lymphocytes 36%, mesothelial cells 42% Total protein 4.9 LDH 177 Glucose 81 Amylase 12 pleural fluid cytology pending AFB stains pending Gram stain showed moderate white blood cells. Culture pending Diagnostic Findings Postthoracentesis chest x-ray independently reviewed. Significant decrease in the pleural effusion. No pneumothorax. No new findings. Small residual fluid collection identified PG Care Time/CCT Total # of Minutes Spent Total Time Spent with Patient: Total time spent is greater than 50% in coordination of care (as documented) at patient's floor/unit and/or counseling patient: Coding Level of Care Code 66562 SUB INP/OBS CARE 2/35MIN Diagnoses Pleural effusion J90
[2023-03-23] MEDS: ACETAMINOPHEN 1000 MG/100 ML IV IV PRN (08:21)
[2023-03-23] MEDS: PANTOprazole 40 MG in SYRINGE 0 ML IV SCH (10:14)
--- NOTE | 2023-03-23 11:12 | Discharge Summary ---
Date of Service March 23, 2023 Admission HPI Per Admitting Provider The patient is a 27-year-old male with a past medical history including anxiety, depression, GERD, insomnia and morbid obesity. He is status post gastric bypass at [facility] on 02/01/2023. He reports today after surgery he had a bleed into his abdomen, requiring 4 units PRBCs. He also had fluid in his right lung where about 600 cc of fluid was removed with thoracentesis. He reportedly also had a pneumonia treated with vancomycin IV. The patient reports that over the past couple days he has felt like fluids and feeling back up in his lungs again. He has had persistent nausea and vomiting, and unable to hold any foods or liquids down. He reports that even attempting to take chewable multivitamins results and severe nausea and vomiting. Principal Diagnosis L pleural effusion possible LLL pneumonia Discharge Exam GENERAL: 27 yo well developed obese M. AAOx4. NAD. LUNGS: Clear to auscultation bilaterally. Diminished in LLL. CARDIOVASCULAR: Regular rate and rhythm. ABDOMEN: Soft, non-tender and non-distended. BS normoactive x 4 quad. Discharge Data Allergies Allergy/AdvReac Type Severity Reaction Status Date / Time No Known Allergies Allergy Verified 02/15/22 08:56 Consultations 03/22/23 01:00 ED Decision to Admit Stat 03/22/23 08:45 Consult Pulmonology Routine Ordered Studies Chest X-Ray 03/21/23 18:10 XR chest 1V portable CLINICAL HISTORY: Sob, hx pleural effusion TECHNIQUE: Single frontal radiograph of the chest was obtained. Comparison: Comparison is made to CT abdomen pelvis 02/15/2022 FINDINGS: No lines and tubes are seen. Cardiomegaly is noted. The lungs are clear apart from left-sided atelectasis. Moderate left pleural effusion is seen. IMPRESSION: Moderate left pleural effusion with underlying atelectasis. ACT 112: Negative or not required by law. Electronically signed by: Angel Gaston M.D. 03/21/2023 6:24 PM Abdomen/Pelvis CT 03/21/23 22:36 Exam(s): CT ABDOMEN + PELVIS With Contrast IV Amt: 87 ml optiray 320 EXAM: CT Abdomen and Pelvis With Intravenous Contrast CLINICAL HISTORY: Reason for exam: recent gastric bypass, pleural effusion. TECHNIQUE: Axial computed tomography images of the abdomen and pelvis with intravenous contrast. Automated exposure control was utilized for the study. A dose lowering technique was utilized adhering to the principles of ALARA. CONTRAST: Patient received 87 ml optiray 320 of IV contrast COMPARISON: Comparison made to prior CT scan of the abdomen pelvis from February 15, 2022. FINDINGS: Lung bases: Left lower lobe consolidation with large pleural effusion. ABDOMEN: Liver: Hepatic steatosis. No mass. Gallbladder and bile ducts: Unremarkable. No calcified stones. No ductal dilation. Pancreas: Unremarkable. No mass. No ductal dilation. Spleen: Unremarkable. No splenomegaly. Adrenals: Unremarkable. No mass. Kidneys and ureters: Unremarkable. No solid mass. No hydronephrosis. Stomach and bowel: Status post gastric bypass with expected postsurgical changes. No obstruction. No mucosal thickening. PELVIS: Appendix: No findings to suggest acute appendicitis. Bladder: Unremarkable. No mass. Reproductive: Unremarkable as visualized. ABDOMEN and PELVIS: Intraperitoneal space: Unremarkable. No free air. No significant fluid collection. Bones/joints: No acute fracture. No dislocation. Soft tissues: There is a 7.5 mm fat-containing umbilical hernia. Vasculature: Unremarkable. No abdominal aortic aneurysm. Lymph nodes: Unremarkable. No enlarged lymph nodes. IMPRESSION: Left lower lobe consolidation with large pleural effusion. Hepatic steatosis. Status post gastric bypass with expected postsurgical changes. Electronically signed by: Breanne Silveira MD 03/21/23 23:[address] 03/21/23 22:36 Exam(s): CT CHEST With Contrast IV Amt: 87 ml optiray 320 EXAM: CT Chest With Intravenous Contrast CLINICAL HISTORY: Reason for exam: chest pain, pleural effusion. TECHNIQUE: Axial computed tomography images of the chest with intravenous contrast. Automated exposure control was utilized for the study. A dose lowering technique was utilized adhering to the principles of ALARA. CONTRAST: Patient received 87 ml optiray 320 of IV contrast COMPARISON: No relevant prior studies available. FINDINGS: Lungs: Left lower lobe and left upper lobe consolidation. Pleural space: Large left pleural effusion. Heart: Unremarkable. No cardiomegaly. No significant pericardial effusion. No significant coronary artery calcifications. Bones/joints: Unremarkable. No acute fracture. No dislocation. Soft tissues: Hepatic steatosis. Status post gastric bypass surgery. Vasculature: Unremarkable. No thoracic aortic aneurysm. Lymph nodes: Prominent mediastinal and hilar lymph nodes. IMPRESSION: Consolidation in the left upper and left lower lobe with large pleural effusion. Electronically signed by: Breanne Silveira MD 03/21/23 23:53 PM Chest X-Ray 03/22/23 15:06 XR chest 1V portable HISTORY: Status post left-sided thoracentesis. Assess for a pneumothorax. COMPARISON: Chest CT 03/21/2023. FINDINGS: There is a small left pleural effusion remaining status post thoracentesis. Left basilar densities have also improved. No pneumothorax. The right lung is clear. The cardiac silhouette remains mildly enlarged. There are low lung volumes. IMPRESSION: Decrease in size in the small left pleural effusion and left basilar density status post thoracentesis. No pneumothorax. ACT 112: Negative or not required by law. Electronically signed by: Jessee Aburto M.D. 03/22/2023 3:47 PM Hospital Course (1) Pleural effusion: Acute/stable - recurrent - S/p thoracentesis performed by pulm on 03/22 with 1700 cc of cloudy fluid sent for analysis - exudative based on protein >3.0 (pleural fluid protein was 4.9) - etiology ?? could be from movement of fluid from below diaphragm related to his recent abd surgery - Pleural fluid cultures and smear for AFB are pending - Recommend utilizing incentive spirometer q3-4 hours upon his return home - May use APAP and/or heating pad to affected area as needed for discomfort - Follow up with pulmonology in 1-2 weeks (2) Pneumonia: Acute/stable - Questionable compressive atelectasis of LLL v consolidation - Will plan to transition to Augmentin 875-125mg BID x 5 more days to complete treatment for possible pna (3) Gastric bypass status for obesity: S/p surgery 1.5 months ago - Post operative course was complicated by GI bleeding - Continue PPI - H&H stable - Follow up with surgeon as scheduled Plan Patient is medically and hemodynamically stable for discharge home today. Follow up with lung specialist and pcp as discussed. Above plan of care has been d/w Dr. Hester who is in agreement with aforementioned. Total Time Total Time Spent Total Time Spent (In Minutes): 35 minutes Discharge Plan Discharge Items Patient Disposition: Home - Self-Care Reason For Visit: PNEUMONIA,PARAPNEUMONIC EFFUSION Discharge Diagnosis: pleural effusion (fluid in the lung) Activity: Resume your previous activity Non-emergency contact: Primary Care Provider and [employer] Call non-emergency contact if: you have any medication questions and your symptoms worsen Follow-up/Referrals: Tao Mazno MD [Primary Care Provider] - 04/06/23 9:00 am Diet: Regular Addtl Attending Provider Instructions: You were hospitalized due to fluid in your lung which was drained by our pulmonology team. Testing has been sent on the fluid. You will need to follow up with pulmonology in 1-2 weeks. An appointment has been arranged for you. You are being prescribed antibiotics called Augmentin which you will take twice a day to cover for possible pneumonia in your left lung. Please complete the course as prescribed. Your next dose is due on 03/23/23 before bed. Please take with food or milk to minimize upset stomach. You may notice diarrhea with this, that is a common side effect. You can consume yogurt with live cultures to help offset the diarrhea. Please continue to utilize your incentive spirometer every 3-4 hours while at home to essentially "exercise" your lungs and keep them expanded. You can use Tylenol and a heating pad as needed for your pain/discomfort. Follow up with your family doctor within 1 week of discharge. If you have any questions/concerns following your discharge, feel free to contact the nonemergency number listed on your discharge paperwork. In the event of a medical emergency, call 911. Pending Studies at Discharge: Yes Stand-Alone Forms: My [facility], Smoking Cessation Medications and DC Order Prescriptions: Continued trazodone 50 mg tablet 50 mg PO HS PRN (Reason: Sleep) omeprazole 20 mg capsule,delayed release(DR/EC) 20 mg PO DAILYBB citalopram 40 mg tablet 40 mg PO QAM apple cider vinegar 600 mg Capsule 600 mg PO QAM Men's One Daily Tablet 1 tab PO QAM ondansetron 4 mg tablet,disintegrating 4 - 8 mg PO Q6H PRN (Reason: nausea and vomiting) Qty: 20 0RF Discharge Orders: Discharge Order (Routine); Ordered 03/23/23 Ordered By: Tish Calderon Admission Data Admit Date/Time: 03/22/23 01:13 Attending Provider: Dinesh Hester Admit Provider: Danielito Hernández Primary Care Provider: Tao Manzo Other Providers: Danielito Hernández ; Jaswinder Herrera Coding Level of Care Code 09832 INP/OBS DISCH >30 MIN Diagnoses Pleural effusion J90 Pneumonia J18.9 Laterality: left Lung location: unspecified part of lung Pneumonia type: due to unspecified organism Gastric bypass status for obesity Z98.84
--- NOTE | 2023-03-29 09:13 | Coding Query ---
CODING QUERY To promote full compliance with coding requirements relating to patient care, provider participation is requested in all cases of medical records coder uncertainty. Please assist us with the question(s) below: Coding Question(s): Please specify below, in your clinical opinion, regarding the Pleural Effusion: (x ) Possible complication resulting from the recent gastric bypass surgery ( ) Not a complication resulting from the recent gastric bypass surgery ( ) Other: Please Specify Physician's Response(s): Thank you Wilda Miller Principal Diagnosis: "that condition established after study, to be chiefly responsible for occasioning the admission of the patient to the hospital for care." Co-Existing Principal Diagnosis: "when two or more diagnoses equally meet the criteria for principal diagnosis as determined by the circumstances of admission, diagnostic work up, and/or therapy provided, and the Alphabetic Index, Tabular List, or another coding guideline does not provide sequencing direction, any one of the diagnoses may be sequenced first." "When the physician has documented what appears to be a current diagnosis in the body of the record, but has not included the diagnosis in the final diagnostic statement, the physician should be asked whether the diagnosis should be added." (Source Coding [facility] 2 QTR90. p3-4) LULY
== END 2023-03-23 18:43 | disposition home or self-care (01) ==
LOC: ED 18:01 → INTOOBSV 03-22 01:13 → EDINP 03-22 01:13 → SUATTDRO 03-22 01:13 → 2N 03-22 04:10